=== PATIENT | male | born 1975 | race Caucasian/White ===

== ENCOUNTER 2019-03-18 09:11 | Outpatient (CLI) | payer BC ==
--- NOTE | 2019-03-18 09:27 | ULT ---
US Thyroid STANDARD HISTORY: Hypothyroidism COMPARISON: None. FINDINGS: Real-time imaging of the right and left lobes the gland were performed. Right lobe measures 1.3 x 1.4 x 3.8 cm left lobe measures 1.2 x 1.5 x 3.9 cm. The gland is very heterogeneous and indistinct in appearance it is overall small appearance in size. No discrete nodules were demonstrate d. IMPRESSION: Small heterogeneous appearing thyroid gland.
== END 2019-03-18 09:12 | disposition home or self-care (01) ==
LOC: BICULT 09:11
PROVIDERS: ATTEND Internal Medicine Endocrinology, Diabetes & Metabolism
DX: E03.9 Hypothyroidism, unspecified (principal)
CPT/HCPCS: 76536

== ENCOUNTER 2019-04-21 08:48 | Outpatient (CLI) | payer BC ==
--- NOTE | 2019-04-21 11:36 | MRI ---
MRI LEFT ANKLE PERFORMED WITHOUT CONTRAST ENHANCEMENT: Date: 04/21/2019 HISTORY: Left hindfoot pain and swelling. FINDINGS: The Achilles tendon is normal in caliber. Kager's fat is normal in appearance. Very minimal edema lenore nge seen in the region of the pre Achilles bursa. The anterior extensor tendon group is normal. Posterior tibialis, flexor digitorum longus, and flexor hallucis longus tendons are intact. Some trace tenosynovitis changes of the common peroneal tendon sheath. The peroneus brevis becomes ve ry flattened, and although it is difficult to visualize, I believe that there is a small split tear p resent. There also is suggestion of some mild tendinosis of the peroneus brevis tendon. Sinus tarsi region is unremarkable. There is some thickening to the plantar fascia, but no signs of a ny acute edema change. No osteochondral lesions of the talar dome. Anterior talofibular ligament, calcaneal fibular ligament , posterior talofibular ligament, and deltoid ligament complex all appear intact. Lisfranc ligament appears intact. IMPRESSION: Flattened appearance to the peroneus brevis tendon with what appears to be a small split tear as it p asses beneath the fibula, also with suggestion of some mild tendinosis of the peroneus longus tendon. POS: [facility]
== END 2019-04-21 08:49 | disposition home or self-care (01) ==
LOC: SCSMRI 08:48
PROVIDERS: ATTEND Podiatrist Foot & Ankle Surgery
DX: M77.42 Metatarsalgia, left foot (principal); R93.7 Abnormal findings on diagnostic imaging of other parts of musculoskeletal system

== ENCOUNTER 2022-06-27 08:34 | Outpatient (CLI) | payer BC ==
[2022-06-27 09:36] LABS: #Eosinphils 0.1 10x3/uL (0.0-0.5); #Monocytes 0.5 10x3/uL (0.0-1.1); #Neutrophils 4.2 10x3/uL (1.5-8.4); %Basophils 0.3 % (0.0-2.0); %Eosinophils 1.4 % (0.0-6.0); %Lymphocytes 22.1 % (18.0-47.0); %Monocytes 8.6 % (0.0-10.0); Hemoglobin 17.9 g/dL (13.5-17.5); Mean Corpuscular HGB CONC 34.4 g/dL (32.0-36.0); Mean Corpuscular Hemoglobin 30.8 pg (27.0-33.0); Mean Corpuscular Volume 89.5 fl (81.2-95.1); Mean Platelet Volume 10.1 fl (7.4-10.4); Platelet Count 200 10x3/uL (150-450); RBC Distribution Width 13.4 % (11.5-14.5); Red Blood Cell (RBC) Count 5.82 10x6/uL (4.32-5.72); White Blood Cell (WBC) Count 6.3 10x3/uL (3.5-10.5)
[2022-06-27 09:48] LABS: Anion Gap 13 mmol/L (10-20); BUN (Urea Nitrogen) 13 mg/dL (8.9-20.6); Calc. Creatinine Clearance 0 mL/min (70-130); Calcium 9.1 mg/dL (7.8-10.44); Carbon Dioxide 23 mmol/L (22-29); Chloride 106 mmol/L (98-107); Estimated GFR 66; Glucose 86 mg/dL (70-105); Potassium 4.4 mmol/L (3.5-5.1); Sodium 138 mmol/L (136-145)
== END 2022-06-27 08:35 | disposition home or self-care (01) ==
LOC: LABBT 08:34
PROVIDERS: ATTEND Orthopaedic Surgery
DX: Z01.812 Encounter for preprocedural laboratory examination (principal); M23.92 Unspecified internal derangement of left knee
CPT/HCPCS: 80048; 85025

== ENCOUNTER 2022-06-28 07:22 | Day surgery (SDC) | payer BC ==
[2022-06-26 14:31] VITALS: BMI 40.6
[2022-06-28] MEDS ORDERED: Lidocaine 2% PF 5 ML VIAL ONE (08:28)
[2022-06-28] MEDS ORDERED: PROPOFOL 20 ML ONE (08:28)
[2022-06-28] MEDS ORDERED: Bupivacaine PF 0.5% 30 ML VIAL ONE (08:28)
[2022-06-28] MEDS ORDERED: Bupivacaine HCl 0.5%/Epinephrine 1:200,000/PF 30 ml Vial ONE (09:05)
[2022-06-28] MEDS ORDERED: fentaNYL 50 mcg/mL 1 mL Vial ONE ×2 (10:40→12:44)
[2022-06-28] MEDS ORDERED: Dexmedetomidine 200 MCG/2 ML VIAL ONE (10:40)
[2022-06-28] MEDS ORDERED: Sodium Chloride 0.9% 100 ML ONE (10:47)
[2022-06-28] MEDS ORDERED: CEFAZOLIN 2 GM VIAL ONE (10:47)
[2022-06-28] MEDS ORDERED: PROPOFOL 200 MG/20 ML VIAL ONE (11:02)
[2022-06-28] MEDS ORDERED: Ondansetron PF 4 MG/2 ML Vial ONE (11:02)
[2022-06-28] MEDS ORDERED: Dexamethasone 20 MG/5 ML VIAL ONE (11:02)
[2022-06-28] MEDS ORDERED: Ketorolac Tromethamine 30 MG/ML VIAL ONE (11:02)
[2022-06-28] MEDS ORDERED: HYDROcodone/Acetaminophen 5/325 mg Tablet ONE ×2 (13:33→13:36)
== END 2022-06-28 14:16 | disposition home or self-care (01) ==
LOC: SDC 07:22
PROVIDERS: ATTEND Orthopaedic Surgery
PROC: 0SBD4ZZ Excision of Left Knee Joint, Percutaneous Endoscopic Approach (ICD-10-PCS; principal; 2022-06-28)
DX: M25.862 Other specified joint disorders, left knee (principal); M22.42 Chondromalacia patellae, left knee; M19.90 Unspecified osteoarthritis, unspecified site; G89.29 Other chronic pain; E03.9 Hypothyroidism, unspecified; E29.1 Testicular hypofunction; Z79.1 Long term (current) use of non-steroidal anti-inflammatories (NSAID); Z79.890 Hormone replacement therapy
CPT/HCPCS: J1100; J1885; J2001; J2405; J2704; J3010; J3490; S0020